=== PATIENT | female | born 1935 | race Caucasian/White ===

== ENCOUNTER 2019-03-15 19:28 | Observation (INO) | payer MEDICARE, BC ==
[2019-03-15 20:39] LABS: #Eosinphils 0.1 thou/uL (0.0-0.7); #Lymphocytes 1.7 thou/uL (1.20-3.40); #Monocytes 0.6 thou/uL (0.11-0.59); #Neutrophils 4.3 thou/uL (1.40-6.50); %Basophils 0.6 % (0.0-1.0); %Eosinophils 1.5 % (0.0-10.0); %Lymphocytes 25.7 % (21.0-51.0); %Monocytes 8.2 % (0.0-10.0); %Neutrophils 64.1 % (42.0-75.0); Mean Corpuscular HGB CONC 32.6 g/dL (32.0-36.0); Mean Corpuscular Hemoglobin 31.6 pg (27.0-31.0); Platelet Count 265 thou/uL (130-400); Red Blood Cell (RBC) Count 4.44 mill/uL (4.20-5.40); White Blood Cell (WBC) Count 6.8 thou/uL (4.8-10.8)
--- NOTE | 2019-03-15 20:46 | RAD ---
RADIOGRAPH CHEST 1 VIEW: DATE: 03/15/2019 HISTORY: 83-year-old female with dyspnea FINDINGS: There is no airspace density, pulmonary edema, or pneumothorax. The lateral costophrenic angles are n ot effaced. IMPRESSION: No acute pulmonary findings.
[2019-03-15 21:00] LABS: ALT (SGPT) 16 U/L (8-55); AST (SGOT) 24 U/L (5-34); Albumin 4.1 g/dL (3.4-4.8); Alkaline Phosphatase 116 U/L (40-150); Anion Gap 12 mmol/L (10-20); BUN (Urea Nitrogen) 14 mg/dL (9.8-20.1); Bilirubin, Total 0.4 mg/dL (0.2-1.2); Calc. Creatinine Clearance 0 mL/min (70-130); Calcium 9.5 mg/dL (7.8-10.44); Carbon Dioxide 29 mmol/L (23-31); Chloride 106 mmol/L (98-107); Estimated GFR-MDRD 77; Globulin 3.2 g/dL (2.4-3.5); Glucose 88 mg/dL (83-110); Potassium 3.5 mmol/L (3.5-5.1); Protein, Total 7.3 g/dL (6.0-8.3); Sodium 143 mmol/L (136-145)
[2019-03-15] MEDS ORDERED: Lorazepam 2 MG/ML VIAL ONE (23:17)
[2019-03-15 23:27] LABS: Bilirubin Negative (Negative); Blood, Urine Large (Negative); Clarity CLOUDY (Clear); Glucose, Urine (Dipstick) Negative (Negative); Leukocyte Large (Negative); Nitrite Negative (Negative); Protein, Urine (Dipstick) Negative (Neg-Trace); Urobilinogen 0.2 mg/dL (0.2-1.0)
[2019-03-15 23:29] LABS: Bacteria/HPF None Seen HPF (None Seen); Hyaline Casts/LPF 7-10 HYALINE CAST LPF (0-3 Hyaline); Squamous Epithelial 0-3 HPF (0-3)
[2019-03-15 23:46] LABS: Pathc Cast-AUWi Flag 2.72 (0-2.49); Yeast-AUWi Flag 66.6 (0-25.0)
[2019-03-15 23:48] LABS: Other Casts/LPF None Seen LPF (0-3 Hyaline); Transitional Epithelial 0-3 HPF (0-3); Yeast-All Forms None Seen HPF (None Seen)
[2019-03-16] MEDS ORDERED: cefTRIAXone\\ROCEPHIN 2 GM VIAL ONE (00:04)
[2019-03-16] MEDS ORDERED: Sodium Chloride 0.9% 1,000 ML IV SCH (00:31)
[2019-03-16 01:01] VITALS: BMI 29.9
[2019-03-16] MEDS ORDERED: Benzonatate 100 MG CAP PO PRN (08:27)
[2019-03-16] MEDS ORDERED: cloNIDine 0.1 MG TAB PO PRN (08:27)
[2019-03-16] MEDS ORDERED: Acetaminophen 325 MG TAB PO PRN (08:27)
[2019-03-16] MEDS ORDERED: Bisacodyl 5 MG TAB PO PRN (08:27)
[2019-03-16] MEDS ORDERED: Nitroglycerin 0.4 MG TAB (25 Tab Bottle) SL PRN (08:27)
[2019-03-16] MEDS ORDERED: Diabetic Tussin 200 MG/10 ML UDCUP PO PRN (08:27)
[2019-03-16] MEDS ORDERED: hydrALAZINE 20 MG/ML VIAL SLOW IVP PRN (08:27)
[2019-03-16] MEDS ORDERED: Ondansetron PF 4 MG/2 ML Vial IVP PRN ×2 (08:27)
[2019-03-16] MEDS ORDERED: Senokot S 8.6-50 MG TAB PO PRN ×2 (08:27)
[2019-03-16] MEDS ORDERED: Zinc Acetate [Galzin] 50 MG PO SCH (09:45)
[2019-03-16] MEDS: Lisinopril 10 MG TAB PO SCH ×3 (10:22→20:13)
[2019-03-16] MEDS: Multivit, Therapeutic 1 TAB PO SCH (10:22)
[2019-03-16] MEDS: Enoxaparin Sodium 40 MG/0.4 ML SYRINGE SC SCH (10:23)
[2019-03-16] MEDS: Aspirin Chewable 81 MG TAB PO SCH (10:23)
[2019-03-16] MEDS: Metamucil PACK PO SCH (10:23)
[2019-03-16] MEDS: Sodium Chloride 0.9% 1,000 ML IV SCH ×2 (10:24→19:06)
[2019-03-16] MEDS: traMADol HCl 50 MG TAB PO PRN ×2 (15:47→22:52)
--- NOTE | 2019-03-16 16:33 | HP ---
PRIMARY CARE PHYSICIAN: Dr. Guzman Ervin. CHIEF COMPLAINT: Fall. DISCHARGE DIAGNOSES: 1. Urinary tract infection. 2. Worsening advanced Alzheimer's dementia and hypertension. DISCHARGE MEDICATIONS: Remain the same as admission medications and as follows; 1. Melatonin one capsule at bedtime. 2. Namenda 5 mg p.o. b.i.d. 3. Zestril 10 mg p.o. b.i.d. 4. Zolpidem at bedtime p.r.n. 5. Metamucil daily. 6. Metoprolol tartrate 50 mg in the morning and 25 mg at bedtime. 7. Lasix 20 mg p.o. b.i.d. 8. Calcium with vitamin D every 3 days. 9. Aspirin 81 mg daily. PROCEDURES DONE IN HOSPITAL: Chest x-ray, which does not show any evidence of acute cardiopulmonary findings. HISTORY OF PRESENTING ILLNESS: Ms. Pedraza is an 83-year-old female with past medical history of advanced dementia and hypertension, who presented to the emergency room when her daughter brought her here. History is mainly obtained by the chart review. It was also discussed with her daughter over the phone. According to the daughter, her mother was recently admitted to [facility] for unknown reasons, not specified by daughter. She is very poor historian and seems to be withholding information. She did not tell me why her mother was admitted there, but remained vague as there was some question of confusion. She would not tell me what kind of workup she has had done over there either. Nevertheless, the patient went home yesterday with her daughter and had a fall and daughter brought her to our hospital instead this time. Upon presentation to the emergency room, her blood pressure was 166/78, but most of her initial workup including chest x-ray and 12-lead EKG was unremarkable. She was found to have urinalysis consistent with possible urinary tract infection, so she was started on IV fluids and IV antibiotics and was admitted to Medicine Services for possible placement. This morning, I discussed her care with her daughter over the phone as she is not in the hospital. After having extensive discussion for multiple minutes with the daughter and the question of placement, I gave her the option of inpatient rehab versus skilled rehab. At this time, the patient's daughter declined both and reports that "my mother will walk out of there" and she refused placement at this time. I advised her that the patient does not meet inpatient or admission criteria at this time, but the daughter was adamant that I keep the patient in the hospital, so the daughter can catch some sleep. I also encouraged her to discuss long-term placement in a dementia unit as the patient was found wandering around in the hospital, going to other patients' room, posing a threat to herself and to other patients. At this time, the daughter started to make unreasonable demands like getting a whole-body MRI and EEG because she feels that her mother might be having some neurological issues. I reassured her that on my examination, Ms. Pedraza is back to her baseline and is awake, alert, and oriented at least to self and very pleasant on my examination. After all of this discussion, the patient was discharged, but when the daughter was called to come and pick her up, she now wants her mother to go to a rehab facility. Because of this reason, the discharge is now canceled and rehab placement is started again. PAST MEDICAL HISTORY: Hypertension, Alzheimer dementia. PAST SURGICAL HISTORY: hysterectomy, mastoidectomy. PSYCHIATRIC HISTORY: Alzheimer dementia, worsening. SOCIAL HISTORY: Lives with her daughter. According to our mental health case manager, there is an open APS case for the daughter as the patient has been found wandering around in the neighborhood multiple times. ALLERGIES: AMLODIPINE, LACTOSE, NORVASC. CURRENT MEDICATIONS: As dictated above. REVIEW OF SYSTEMS: Unobtainable due to severe dementia. LABORATORY EXAMINATION: CBC, unremarkable. Serum chemistries and LFT, unremarkable. Urinalysis shows leukocyte esterase large, wbc's greater than 50, without any bacteria. PHYSICAL EXAMINATION: VITAL SIGNS: Most recent vital signs; temperature 97.2, pulse of 65, respirations 16, saturating 90% to 92% on room air, blood pressure 120/72. GENERAL: No acute distress. Awake, alert, and oriented to self. She is able to answer simple questions. She is wanting to go home at this point. HEENT: Mucous membrane is moist and pink. No oropharyngeal exudate or erythema. Head is normocephalic and atraumatic. Pupils are equal and reactive to light and accommodation. Extraocular movement intact. NECK: Supple without any lymphadenopathy, JVD, or bruit. CHEST: Clear to auscultation without any wheezing, rales, or rhonchi. Rate rhythm is regular. ABDOMEN: Soft, nontender, nondistended with positive bowel sounds. EXTREMITIES: Free of any cyanosis, clubbing, or edema. NEUROLOGIC: Nonfocal. SKIN: Free of any rashes or bruises. Feels warm and dry to touch. PSYCHIATRIC: Oriented to self, but not oriented to place, time, or person. No agitation or depression noticed. IMPRESSION AND PLAN: 1. Urinary tract infection. Continue the Rocephin, IV fluids, and follow the final urine culture results. 2. Fall and high risk due to advanced dementia, placement as dictated above. 3. Code status remains unclear as the daughter would not answer my questions without being vague. The patient is unable to provide any information due to severe dementia. 4. Hypertension. Restart home medications. We will hold the lisinopril for now as I am not sure why the patient needed it in the first place. We will restart her lisinopril for now. 5. Deep venous thrombosis and gastrointestinal prophylaxis. DISPOSITION: Ms. Pedraza will be admitted to the hospital as she needs placement and will be treated for urinary tract infection as well. The patient does not meet any inpatient criteria, so she will be under observation status for now. Job ID: [id number]
[2019-03-16] MEDS: Melatonin 3 MG TAB PO SCH ×2 (20:11→20:13)
[2019-03-16] MEDS ORDERED: cefTRIAXone\\ROCEPHIN 1 GM in Sodium Chloride 0.9% 100 ML IVPB SCH (23:59)
[2019-03-17 05:17] LABS: #Eosinphils 0.1 thou/uL (0.0-0.7); #Lymphocytes 1.5 thou/uL (1.20-3.40); #Monocytes 0.6 thou/uL (0.11-0.59); #Neutrophils 3.4 thou/uL (1.40-6.50); %Basophils 0.8 % (0.0-1.0); %Eosinophils 1.5 % (0.0-10.0); %Lymphocytes 26.5 % (21.0-51.0); %Monocytes 10.7 % (0.0-10.0); %Neutrophils 60.5 % (42.0-75.0); Hemoglobin 12.3 g/dL (12.0-16.0); Mean Corpuscular HGB CONC 32.4 g/dL (32.0-36.0); Mean Corpuscular Hemoglobin 31.7 pg (27.0-31.0); Mean Corpuscular Volume 97.7 fL (78.0-98.0); Mean Platelet Volume 8.2 fL (7.4-10.4); Platelet Count 234 thou/uL (130-400); Red Blood Cell (RBC) Count 3.88 mill/uL (4.20-5.40); White Blood Cell (WBC) Count 5.6 thou/uL (4.8-10.8)
[2019-03-17 05:37] LABS: Anion Gap 11 mmol/L (10-20); BUN (Urea Nitrogen) 12 mg/dL (9.8-20.1); Calc. Creatinine Clearance 90 mL/min (70-130); Calcium 8.8 mg/dL (7.8-10.44); Carbon Dioxide 24 mmol/L (23-31); Chloride 109 mmol/L (98-107); Estimated GFR-MDRD 87; Glucose 90 mg/dL (83-110); Potassium 3.3 mmol/L (3.5-5.1); Sodium 141 mmol/L (136-145)
[2019-03-17 07:20] VITALS: BP 175/85; TEMP 98.4
[2019-03-17] MEDS: Lisinopril 10 MG TAB PO SCH (08:17)
[2019-03-17] MEDS: Aspirin Chewable 81 MG TAB PO SCH (08:18)
[2019-03-17] MEDS: Multivit, Therapeutic 1 TAB PO SCH (08:24)
[2019-03-17] MEDS: Metamucil PACK PO SCH (08:24)
[2019-03-17] MEDS: Enoxaparin Sodium 40 MG/0.4 ML SYRINGE SC SCH (08:24)
[2019-03-17] MEDS: Sodium Chloride 0.9% 1,000 ML IV SCH (08:25)
[2019-03-17] MEDS ORDERED: Metoprolol Tartrate 50 MG TAB PO SCH (09:00)
--- NOTE | 2019-03-17 13:01 | PDOC.PN ---
- Subjective Encounter Start Date: 03/17/19 Encounter Start Time: 13:00 Subjective: wants to go home and crying - Objective MAR Reviewed: Yes Vital Signs & Weight: Vital Signs (12 hours) Temp Pulse Resp BP BP Pulse Ox 03/17/19 08:17 175/85 H 03/17/19 07:17 98.4 F 70 20 175/85 H 94 L 03/17/19 05:55 98.2 F 81 18 139/84 96 Weight Admit Weight 190 lb 12.8 oz Weight 190 lb 12.8 oz I&O: 03/16/19 03/17/19 03/18/19 06:59 06:59 06:59 Intake Total 1300 Balance 1300 Result Diagrams: 03/17/19 04:14 03/17/19 04:14 Additional Labs: Microbiology 03/15/19 23:00 Urine clean catch Urine Culture - Preliminary Phys Exam - Physical Examination Constitutional: NAD sitting up in chair HEENT: PERRLA, moist MMs, sclera anicteric, oral pharynx no lesions Neck: no nodes, no JVD, supple, full ROM Respiratory: no wheezing, no rales, no rhonchi, clear to auscultation bilateral Cardiovascular: RRR, no significant murmur, no rub Gastrointestinal: soft, non-tender, no distention, positive bowel sounds Musculoskeletal: no edema, pulses present Neurological: non-focal, normal sensation, moves all 4 limbs Psychiatric: normal affect Deviation from normal: orineted to self and person Skin: no rash Dx/Plan (1) UTI (urinary tract infection) Status: Acute Comment: Cx pending.cont empiric Levaquin (2) Alzheimer's dementia Code(s): G30.9 - ALZHEIMER'S DISEASE, UNSPECIFIED; F02.80 - DEMENTIA IN OTH DISEASES CLASSD ELSWHR W/O BEHAVRL DISTURB Status: Chronic Comment: cont Namenda (3) HTN (hypertension) Code(s): I10 - ESSENTIAL (PRIMARY) HYPERTENSION Status: Chronic - Plan DVT proph w/SCDs BP high.restart Metoprolol.cont lisinopril -: DC when accpeted but may not meet rehab criteria -: HD stable * . Review of Systems - Review of Systems Other: can not be completed due to severe dementia - Medications/Allergies Allergies/Adverse Reactions: Allergies Allergy/AdvReac Type Severity Reaction Status Date / Time amlodipine besylate Allergy Verified 02/12/16 14:50 [From [facility]] Medications: Current Medications Acetaminophen (Tylenol) 650 mg PO Q4H PRN PRN Reason: Headache/Fever/Mild Pain (1-3) Aspirin (Aspirin Chewable) 81 mg PO DAILY [facility] Last Admin: 03/17/19 08:18 Dose: 81 mg Benzonatate (Tessalon) 100 mg PO Q6H PRN PRN Reason: Cough Bisacodyl (Dulcolax) 10 mg PO DAILYPRN PRN PRN Reason: Constipation Clonidine (Catapres) 0.1 mg PO Q4H PRN PRN Reason: SBP > 160____ Enoxaparin Sodium (Lovenox) 40 mg SC 0900 [facility] Last Admin: 03/17/19 08:24 Dose: 40 mg Guaifenesin (Robitussin Sf) 200 mg PO Q4H PRN PRN Reason: Cough Hydralazine HCl (Apresoline) 10 mg SLOW IVP Q4H PRN PRN Reason: SBP > 180 and HR < 70 Sodium Chloride (Normal Saline 0.9%) 1,000 mls @ 75 mls/hr IV .[id number] [facility] Last Admin: 03/17/19 08:25 Dose: Not Given Levofloxacin (Levaquin) 500 mg PO 0600 [facility] Last Admin: 03/17/19 08:19 Dose: 500 mg Lisinopril (Zestril) 10 mg PO BID [facility] Last Admin: 03/17/19 08:17 Dose: 10 mg Melatonin (Melatonin) 6 mg PO HS [facility] Last Admin: 03/16/19 20:13 Dose: Not Given Memantine (Namenda) 5 mg PO BID [facility] Last Admin: 03/17/19 08:24 Dose: Not Given Metoprolol Tartrate (Lopressor) 25 mg PO QPM [facility] Metoprolol Tartrate (Lopressor) 50 mg PO DAILY [facility] Last Admin: 03/17/19 11:52 Dose: 50 mg Multivitamins (Theragran) 1 tab PO DAILY [facility] Last Admin: 03/17/19 08:24 Dose: Not Given Nitroglycerin (Nitrostat) 0.4 mg SL Q5MIN PRN PRN Reason: Chest Pain Ondansetron HCl (Zofran) 4 mg IVP Q6H PRN PRN Reason: Nausea/Vomiting Zinc Acetate [Galzin (] 50 Mg) 0 each PO Q2D [facility] Psyllium Hydrophilic Mucilloid (Metamucil) 1 pk PO DAILY [facility] Last Admin: 03/17/19 08:24 Dose: Not Given Senna/Docusate Sodium (Senokot S) 2 tab PO BID PRN PRN Reason: Constipation Tramadol HCl (Ultram) 50 mg PO Q6H PRN PRN Reason: Moderate Pain (4-6) Last Admin: 03/16/19 22:52 Dose: 50 mg
[2019-03-17] MEDS ORDERED: Metoprolol Tartrate 25 MG TAB PO SCH (21:00)
--- NOTE | 2019-03-18 12:06 | DIS ---
DATE OF ADMISSION: 03/15/2019 DATE OF DISCHARGE: 03/17/2019 CONDITION AT THE TIME OF DISCHARGE: Stable and improved. DISCHARGE DISPOSITION: Home. DISCHARGE DIAGNOSES: 1. Urinary tract infection. 2. Severe Alzheimer dementia. 3. Hypertension. DISCHARGE MEDICATIONS: 1. Levofloxacin 500 mg p.o. daily for 3 more days. 2. Resume home medications as previously. No changes were made. Please see admission history and physical dictated by myself yesterday for full details and full list of her medications. Please note that the Xanax was not listed in her home medications. PRIMARY CARE PHYSICIAN: Guzman Ervin MD PROCEDURES DONE IN THE HOSPITAL: Chest x-ray, which is unremarkable. HISTORY OF PRESENTING ILLNESS: Ms. Pedraza is an 83-year-old female with severe Alzheimer dementia, who was brought into the ER by her daughter because of inability to take care of her at home. The patient was discharged from [facility] just early yesterday morning, but the daughter took her home and the patient had a fall, and she brought her here to the hospital. Upon presentation, she was found to have some evidence of urinary tract infection. Otherwise, no other acute issues. She was admitted for placement. Please see admission history and physical dictated by myself yesterday for full details. HOSPITAL COURSE: The patient's hospital course was unremarkable. She was started on levofloxacin for her urinary tract infection. Her urine culture remained negative till date. The patient did not meet any admission criteria, and the daughter refused placement initially. It was later found out that the daughter has been having difficult time taking care of the patient with her severe dementia, and the patient tends to wander around and has an open APS case. Even in the hospital, the patient was found to be wandering around other patients' room and in the hallways requiring a sitter. Eventually, she was accepted at inpatient rehab, but they did not have any beds and the discharge was delayed up until Friday. The daughter came to the hospital, and at this time, desired that she will take the mom home rather than keep her here in the hospital 2 more days just waiting for the rehab bed to be available. Because the patient was stable for discharge, she was discharged with the daughter. She was seen and examined prior to discharge. Please see a hospitalist progress note from today's date for [id number] details. Total time spent in the discharge 32 minutes. Please note that the patient remains a high risk because of severe dementia. I have discussed this extensively with her daughter that she will be best served in the dementia unit or long-term care facility. The daughter, at this time, is not interested in either of those. She will discuss this further with her primary care physician. Please also note that, at this time, the daughter is taking her to home, but she will bring her back to inpatient rehab on Friday when the bed is said to be becoming available. Once again, the patient is going home only for less than 2 days, and eventual plan for her to get inpatient rehab admission done on Friday, which is a day from tomorrow. Job ID: [id number]
== END 2019-03-17 17:15 | disposition home or self-care (01) ==
LOC: ERS 19:28 → T4-A 23:01
PROVIDERS: ADMIT Family Medicine; ATTEND Family Medicine
DX: N39.0 Urinary tract infection, site not specified (principal); G30.9 Alzheimer's disease, unspecified; F02.80 Dementia in other diseases classified elsewhere, unspecified severity, without behavioral disturbance, psychotic disturbance, mood disturbance, and anxiety; I10 Essential (primary) hypertension; Z79.82 Long term (current) use of aspirin; Z79.899 Other long term (current) drug therapy; Z88.8 Allergy status to other drugs, medicaments and biological substances
CPT/HCPCS: 71045; 80048; 80053; 84484; 85025 ×2; 87086; 93005; 96361; 96372 ×2; 96374; 96375; 97116 ×2; 97139 ×3; 97530; 97535; 99285; G0378 ×2; 36415; 81003; 81015; A4353; J0696; J1650; J2060

== ENCOUNTER 2019-03-25 11:42 | Emergency (ER) | payer MEDICARE, BC ==
[2019-03-25 12:11] LABS: Bilirubin Negative (Negative); Blood, Urine Negative (Negative); Clarity CLEAR (Clear); Glucose, Urine (Dipstick) Negative (Negative); Leukocyte Small (Negative); Nitrite Negative (Negative); Protein, Urine (Dipstick) Negative (Neg-Trace); Specific Gravity, Urine 1.006 (1.002-1.036); Urobilinogen 0.2 mg/dL (0.2-1.0); pH, Urine 6.5 (5.0-9.0)
[2019-03-25 12:19] LABS: Bacteria/HPF None Seen HPF (None Seen); RBC/HPF 0-3 HPF (0-3); Squamous Epithelial 0-3 HPF (0-3); Transitional Epithelial 0-3 HPF (0-3); WBC/HPF 0-3 HPF (0-3)
[2019-03-25 12:20] LABS: Hyaline Casts/LPF NONE SEEN LPF (0-3 Hyaline)
[2019-03-25 12:34] LABS: #Eosinphils 0.1 thou/uL (0.0-0.7); #Lymphocytes 1.6 thou/uL (1.20-3.40); #Monocytes 0.6 thou/uL (0.11-0.59); #Neutrophils 3.5 thou/uL (1.40-6.50); %Basophils 0.5 % (0.0-1.0); %Eosinophils 1.9 % (0.0-10.0); %Lymphocytes 27.8 % (21.0-51.0); %Neutrophils 59.8 % (42.0-75.0); Hemoglobin 14.8 g/dL (12.0-16.0); Mean Corpuscular HGB CONC 32.6 g/dL (32.0-36.0); Mean Corpuscular Hemoglobin 31.4 pg (27.0-31.0); Mean Corpuscular Volume 96.3 fL (78.0-98.0); Mean Platelet Volume 8.2 fL (7.4-10.4); Platelet Count 244 thou/uL (130-400); Red Blood Cell (RBC) Count 4.72 mill/uL (4.20-5.40); White Blood Cell (WBC) Count 5.8 thou/uL (4.8-10.8)
[2019-03-25 12:51] LABS: ALT (SGPT) 18 U/L (8-55); AST (SGOT) 24 U/L (5-34); Albumin 4.2 g/dL (3.4-4.8); Alkaline Phosphatase 122 U/L (40-150); Anion Gap 12 mmol/L (10-20); BUN (Urea Nitrogen) 15 mg/dL (9.8-20.1); Bilirubin, Total 0.5 mg/dL (0.2-1.2); Calc. Creatinine Clearance 0 mL/min (70-130); Calcium 9.9 mg/dL (7.8-10.44); Carbon Dioxide 30 mmol/L (23-31); Chloride 105 mmol/L (98-107); Estimated GFR-MDRD 73; Globulin 3.2 g/dL (2.4-3.5); Glucose 87 mg/dL (83-110); Potassium 3.5 mmol/L (3.5-5.1); Protein, Total 7.4 g/dL (6.0-8.3); Sodium 143 mmol/L (136-145)
--- NOTE | 2019-03-25 13:06 | CT ---
CT Brain WO Con: 03/25/2019 12:01 PM CLINICAL HISTORY: Altered mental status. COMPARISON: None. FINDINGS: Hemorrhage: None. Ventricular system: Compensatory dilatation of ventricular system due to moderate global atrophy. Cerebral parenchyma: Microvascular ischemic disease Midline shift: None. Mass: No mass effect. Calvarium: Normal. Visualized Paranasal sinuses: Scattered mild inflammatory mucosal thickening. Partial left mastoidect marquez. IMPRESSION: No acute intracranial abnormalities.
--- NOTE | 2019-03-25 13:17 | RAD ---
EXAM: Single view of the chest HISTORY: Altered mental status COMPARISON: 03/15/2019 FINDINGS: Single view of the chest shows a normal sized cardiomediastinal silhouette. Atheroscleroti c calcifications are seen in the aorta. There is no evidence of consolidation, mass, or pleural effusion. The bones are unremarkable. IMPRESSION: No evidence of acute cardiopulmonary disease
== END 2019-03-25 15:47 | disposition home or self-care (01) ==
LOC: ERS 11:42
DX: R53.1 Weakness (principal); I10 Essential (primary) hypertension; F41.9 Anxiety disorder, unspecified; Z79.899 Other long term (current) drug therapy; Z79.891 Long term (current) use of opiate analgesic
CPT/HCPCS: 36415; 51701; 70450; 71045; 80053; 81003; 81015; 83605; 85025; 87040; 87086; 93005; 94760; A4353

== ENCOUNTER 2019-05-14 09:24 | Emergency (ER) | payer MEDICARE, BC ==
[2019-05-14 10:09] LABS: #Eosinphils 0.1 thou/uL (0.0-0.7); #Lymphocytes 1.3 thou/uL (1.20-3.40); #Monocytes 0.5 thou/uL (0.11-0.59); #Neutrophils 2.7 thou/uL (1.40-6.50); %Basophils 0.6 % (0.0-1.0); %Eosinophils 1.5 % (0.0-10.0); %Lymphocytes 28.6 % (21.0-51.0); %Monocytes 10.9 % (0.0-10.0); %Neutrophils 58.5 % (42.0-75.0); Hemoglobin 12.8 g/dL (12.0-16.0); Mean Corpuscular HGB CONC 31.6 g/dL (32.0-36.0); Mean Corpuscular Hemoglobin 30.5 pg (27.0-31.0); Mean Corpuscular Volume 96.6 fL (78.0-98.0); Mean Platelet Volume 8.3 fL (7.4-10.4); Platelet Count 264 thou/uL (130-400); White Blood Cell (WBC) Count 4.7 thou/uL (4.8-10.8)
--- NOTE | 2019-05-14 10:17 | RAD ---
EXAM: Portable chest PROVIDED CLINICAL HISTORY: Chest pain COMPARISON: 03/25/2019 FINDINGS: Cardiac and mediastinal silhouette is within normal limits. No focal consolidation, pleural fluid or pneumothorax evident. IMPRESSION: No evidence for an acute cardiopulmonary process.
[2019-05-14 10:39] LABS: ALT (SGPT) 16 U/L (8-55); AST (SGOT) 20 U/L (5-34); Albumin 3.7 g/dL (3.4-4.8); Alkaline Phosphatase 99 U/L (40-150); Anion Gap 11 mmol/L (10-20); BUN (Urea Nitrogen) 12 mg/dL (9.8-20.1); Bilirubin, Total 0.5 mg/dL (0.2-1.2); Calc. Creatinine Clearance 0 mL/min (70-130); Calcium 9.4 mg/dL (7.8-10.44); Carbon Dioxide 27 mmol/L (23-31); Chloride 107 mmol/L (98-107); Estimated GFR-MDRD 74; Globulin 2.9 g/dL (2.4-3.5); Glucose 87 mg/dL (83-110); Potassium 3.9 mmol/L (3.5-5.1); Protein, Total 6.6 g/dL (6.0-8.3); Sodium 141 mmol/L (136-145)
--- NOTE | 2019-05-14 11:55 | CT ---
CT BRAIN WITHOUT CONTRAST: HISTORY: Trauma. The patient was found on the floor of the bedroom, in the morning. COMPARISON: 03/25/2019 FINDINGS: Changes of cortical atrophy and chronic small vessel ischemic disease are again seen. The ventricula r size is stable and the basilar cisterns are patent. No evidence of acute infarct, hemorrhage, midl ine shift, or abnormal extraaxial fluid collections is seen. The bony calvarium is intact. The visu alized paranasal sinuses and mastoid air cells are well aerated. IMPRESSION: No CT evidence of acute intracranial process. POS: [facility]
== END 2019-05-14 13:12 | disposition home or self-care (01) ==
LOC: ERS 09:24
DX: S05.01XA Injury of conjunctiva and corneal abrasion without foreign body, right eye, initial encounter (principal); G30.9 Alzheimer's disease, unspecified; F02.80 Dementia in other diseases classified elsewhere, unspecified severity, without behavioral disturbance, psychotic disturbance, mood disturbance, and anxiety; I10 Essential (primary) hypertension; F41.9 Anxiety disorder, unspecified; Z79.899 Other long term (current) drug therapy; Z79.82 Long term (current) use of aspirin; W18.30XA Fall on same level, unspecified, initial encounter; Y92.003 Bedroom of unspecified non-institutional (private) residence as the place of occurrence of the external cause
CPT/HCPCS: 36415; 70450; 71045; 80053; 85025

== ENCOUNTER 2019-05-15 21:13 | Emergency (ER) | payer MEDICARE, BC ==
[2019-05-15 22:01] LABS: #Lymphocytes 1.4 thou/uL (1.20-3.40); #Monocytes 0.8 thou/uL (0.11-0.59); #Neutrophils 5.9 thou/uL (1.40-6.50); %Basophils 0.4 % (0.0-1.0); %Eosinophils 0.6 % (0.0-10.0); %Lymphocytes 17.2 % (21.0-51.0); %Monocytes 9.3 % (0.0-10.0); %Neutrophils 72.4 % (42.0-75.0); Hemoglobin 14.2 g/dL (12.0-16.0); Mean Corpuscular HGB CONC 31.9 g/dL (32.0-36.0); Mean Corpuscular Hemoglobin 30.9 pg (27.0-31.0); Mean Corpuscular Volume 96.6 fL (78.0-98.0); Mean Platelet Volume 8.5 fL (7.4-10.4); Platelet Count 268 thou/uL (130-400); RBC Distribution Width 12.2 % (11.5-14.5); White Blood Cell (WBC) Count 8.2 thou/uL (4.8-10.8)
[2019-05-15 22:22] LABS: ALT (SGPT) 16 U/L (8-55); AST (SGOT) 25 U/L (5-34); Albumin 4.1 g/dL (3.4-4.8); Alkaline Phosphatase 111 U/L (40-150); Anion Gap 16 mmol/L (10-20); BUN (Urea Nitrogen) 18 mg/dL (9.8-20.1); Bilirubin, Total 0.8 mg/dL (0.2-1.2); Calc. Creatinine Clearance 0 mL/min (70-130); Calcium 10.1 mg/dL (7.8-10.44); Carbon Dioxide 25 mmol/L (23-31); Chloride 104 mmol/L (98-107); Estimated GFR-MDRD 72; Globulin 3.3 g/dL (2.4-3.5); Glucose 96 mg/dL (83-110); Protein, Total 7.4 g/dL (6.0-8.3); Sodium 141 mmol/L (136-145)
--- NOTE | 2019-05-15 22:42 | RAD ---
Frontal radiograph chest 2 views of abdomen: 05/15/2019 HISTORY: Constipation FINDINGS: Frontal radiograph chest demonstrates no pneumothorax or pleural fluid. No focal consolidat ion or alveolar edema. Upright imaging of the chest demonstrates no free intraperitoneal air. Supine imaging of the abdomen/ pelvis demonstrates mild gaseous prominence of the colon. No evidence for small bowel obstruction. There is prominent degenerative change involving bilateral hips, right greater than left. Multiple ai r-fluid levels noted on decubitus imaging, primarily colonic. IMPRESSION: Mild gaseous distention of colon. No free intraperitoneal air or evidence of small bowel obstruction.
== END 2019-05-16 01:19 | disposition home or self-care (01) ==
LOC: ERS 21:13
DX: S20.212A Contusion of left front wall of thorax, initial encounter (principal); S00.81XA Abrasion of other part of head, initial encounter; K59.00 Constipation, unspecified; H11.31 Conjunctival hemorrhage, right eye; G30.9 Alzheimer's disease, unspecified; F02.80 Dementia in other diseases classified elsewhere, unspecified severity, without behavioral disturbance, psychotic disturbance, mood disturbance, and anxiety; I10 Essential (primary) hypertension; F41.9 Anxiety disorder, unspecified; Z79.82 Long term (current) use of aspirin; Z79.899 Other long term (current) drug therapy; W19.XXXA Unspecified fall, initial encounter
CPT/HCPCS: 36415; 74022; 80053; 85025